=== PATIENT | female | born 1975 | race Caucasian/White ===

== ENCOUNTER 2017-04-22 19:48 | Emergency (ER) | payer BC ==
[2017-04-22 20:21] LABS: #Lymphocytes 1.4 thou/uL (1.20-3.40); #Monocytes 0.7 thou/uL (0.11-0.59); #Neutrophils 15.5 thou/uL (1.40-6.50); %Basophils 0.2 % (0.0-1.0); %Eosinophils 0.2 % (0.0-10.0); %Lymphocytes 8.1 % (21.0-51.0); %Monocytes 4.1 % (0.0-10.0); Hematocrit 37.8 % (36.0-47.0); Mean Platelet Volume 7.4 fL (7.4-10.4); Red Blood Cell (RBC) Count 3.77 mill/uL (4.20-5.40); White Blood Cell (WBC) Count 17.7 thou/uL (4.8-10.8)
[2017-04-22 20:27] LABS: Bilirubin Negative (Negative); Blood, Urine Negative (Negative); Glucose, Urine (Dipstick) Negative (Negative); Ketone, Urine Negative (Negative); Nitrite Negative (Negative); Protein, Urine (Dipstick) Negative (Neg-Trace); Urobilinogen 0.2 mg/dL (0.2-1.0)
[2017-04-22 20:40] LABS: Amphetamine Not Detected (NotDetected); Methamphetamine Not Detected (NotDetected)
[2017-04-22 20:41] LABS: Methadone Not Detected (NotDetected)
[2017-04-22 20:46] LABS: Acetaminophen Less than 6.0 mcg/mL (10.0-30.0); CK (CPK) 63 U/L (29-168); Salicylate Less than 8.0 mg/dL (15.0-30.0)
[2017-04-22 20:47] LABS: ALT (SGPT) 10 U/L (8-55); AST (SGOT) 10 U/L (5-34); Alkaline Phosphatase 67 U/L (40-150); Anion Gap 20 mmol/L (10-20); BUN (Urea Nitrogen) 28 mg/dL (7.0-18.7); Bilirubin, Total 0.2 mg/dL (0.2-1.2); Calc. Creatinine Clearance 0 mL/min (70-130); Calcium 9.6 mg/dL (7.8-10.44); Carbon Dioxide 17 mmol/L (22-29); Chloride 111 mmol/L (98-107); Estimated GFR-MDRD 76
[2017-04-22] MEDS ORDERED: Lorazepam 2 MG/ML VIAL ONE (21:42)
== END 2017-04-22 22:53 | disposition home or self-care (01) ==
LOC: ERS 19:48
DX: F10.129 Alcohol abuse with intoxication, unspecified (principal); F19.10 Other psychoactive substance abuse, uncomplicated; F41.9 Anxiety disorder, unspecified; Y90.7 Blood alcohol level of 200-239 mg/100 ml
CPT/HCPCS: 36415; 51701; 80053; 80306; 80307; 81003; 82550; 84439; 84443; 85025; 93005; 94760; 96361; 96374; A4353; J2060

== ENCOUNTER 2017-08-29 12:52 | Outpatient (CLI) | payer OTHER ==
[2017-08-29] MEDS ORDERED: Iopamidol 300 61% 30 ML VIAL ONE (13:30)
[2017-08-29] MEDS ORDERED: Gadobenate Dimeglumine 529 MG/1 ML (20ML VIAL) ONE (13:30)
[2017-08-29] MEDS ORDERED: Lidocaine 1% PF 10 ML AMP ONE (13:30)
[2017-08-29] MEDS ORDERED: EPINEPHrine 1 MG/ML AMP ONE (13:30)
[2017-08-29 13:52] LABS: BHCG - Serum Negative (NEGATIVE); Pregs Control Background? CLEAR/WHITE (CLR/WHITE); Pregs Control Bar Appear? YES (CONTROL BAR)
--- NOTE | 2017-08-29 16:15 | RAD ---
RIGHT SHOULDER ARTHROGRAM: INDICATION: Right shoulder pain. TECHNIQUE: Informed consent was obtained. Preprocedure item processing clerk images were performed of the right shoulder. I pe rsonally injected the right shoulder utilizing sterile technique and fluoroscopic guidance with a dil vipin Gadolinium solution. The patient tolerated the injection without difficulty. Total fluorosocpic time was 0.3 minutes. Total exposure was 1.481 uGy*^cm2. FINDINGS: No acute fracture or subluxation is evident. Glenohumeral alignment and AC joint alignment is normal . The visualized right lung is clear. IMPRESSION: Successful right shoulder arthrogram. POS: [facility]
--- NOTE | 2017-08-29 17:35 | MRI ---
MR ARTHROGRAM OF THE RIGHT SHOULDER 08/29/17 INDICATION: Right shoulder pain. COMPARISON: Right shoulder arthrogram radiograph dated 08/29/17. TECHNIQUE: Multiplanar and multisequence MR images were obtained in a right shoulder after intra-articular admin istration with dilute gadolinium solution. Please see the separately dictated right shoulder arthrogr am for details concerning injection technique. FINDINGS: There is some mild undersurface irregularity of the supraspinatus with some mild tendinosis. No defin ite full thickness tear is evident. There is some suspected degenerative and subchondral cyst-like ab normalities involving the posterior greater tuberosity. Visualized aspects of the inferior glenohumer al labral ligamentous complex appear intact. The biceps anchor complex and superior glenoid labrum ar e intact. Glenohumeral articular surface appears within normal limits. AC joint is normal appearing. No definite muscular atrophy is evident. IMPRESSION: 1. Mild undersurface irregularity of the supraspinatus. 2. Mild tendinosis of the supraspinatus and infraspinatus. 3. Suspected degenerative subchondral cyst-like abnormalities involving the posterior greater tu berosity which may be related to some traction injury at this location. 4. Visualized biceps anchor complex and inferior glenohumeral labral ligamentous complex appear within normal limits. POS: [facility]
== END 2017-08-29 12:53 | disposition home or self-care (01) ==
LOC: RAD 12:52
PROVIDERS: ATTEND Orthopaedic Surgery
DX: M25.511 Pain in right shoulder (principal); M75.91 Shoulder lesion, unspecified, right shoulder; Z98.890 Other specified postprocedural states
CPT/HCPCS: 23350; 36415; 84703; A9579; J0171; J7050

== ENCOUNTER 2018-09-12 11:58 | Day surgery (SDC) | payer OTHER ==
[2018-09-04 14:26] VITALS: BMI 28.3
--- NOTE | 2018-09-05 00:53 | HP ---
HISTORY OF PRESENT ILLNESS: This is a 43-year-old female, comes to the ED because of abdominal pain, dyspepsia. The patient gives history of chronic acid reflux. She has complains of abdominal pain off and on. The symptoms are worse very recently. The pain is over the upper abdomen. It is sharp in nature. It is also burning. The pain is worse after meals. There is no nausea or vomiting. The patient went to the ER 3 weeks ago and had abdominal CAT scan. The abdominal CAT scan shows sigmoid diverticulosis, but no diverticulitis. The patient has been having recurrent abdominal pain and acid reflux symptoms recently. The patient came to the ED because of the above reason. ALLERGIES: NONE. SOCIAL HISTORY: The patient is a smoker, smokes 6 to 7 cigarettes per day. No alcohol intake. MEDICAL ILLNESS: 1. Chronic neck pain. 2. Anxiety. 3. Hemorrhoids. 4. Asthma. 5. Pneumonia in 2016. PHYSICAL EXAMINATION: GENERAL: Appears comfortable. VITAL SIGNS: Pulse is 70, blood pressure 130/70. HEENT: Conjunctivae clear. NECK: Supple. ABDOMEN: Soft. Abdomen is tender in the epigastric area. There is no rebound or guarding. ADMITTING DIAGNOSES: Abdominal pain and dyspepsia. PLAN: EGD. Job ID: [id number]
--- NOTE | 2018-09-12 07:34 | HP ---
HISTORY OF PRESENT ILLNESS: This is a 43-year-old female comes in for EGD for abdominal pain, dyspepsia. The patient has had chronic symptoms. chronic acid reflux. She has abdominal pain off and on. The pain is over the epigastric area and is sharp in nature. The pain is worse after meals. She has mild nausea with the pain. She had no vomiting. The patient came to the ER because of abdominal pain. Recently had a CAT scan. The CAT scan for colonic diverticular disease. The patient is undergoing EGD because of the above reason. ALLERGIES: NONE. SOCIAL HISTORY: The patient is a smoker. Does not drink alcohol. MEDICAL ILLNESSES: 1. Chronic neck pain. 2. Anxiety. 3. Hemorrhoids. 4. Asthma. 5. Pneumonia in 2016. PHYSICAL EXAMINATION: GENERAL: Appears comfortable. VITAL SIGNS: Pulse is 70, blood pressure 130/70. HEENT: Conjunctivae clear. CARDIOVASCULAR SYSTEM: First and second heart sounds heard. LUNGS: Clear to auscultation. ABDOMEN: Soft. No organomegaly. Abdomen is tender over the epigastric area. There is no rebound or guarding. Bowel sounds are normal. ADMITTING DIAGNOSES: Abdominal pain, nausea, and chronic acid reflux. PLAN: EGD. Job ID: [id number]
[2018-09-12] MEDS ORDERED: Midazolam HCl 2 mg/2 ml Vial ONE (12:59)
[2018-09-12] MEDS ORDERED: Lorazepam 1 MG TAB PO SCH (14:15)
[2018-09-12] MEDS ORDERED: Lidocaine 1% PF 5 ML VIAL ONE (14:43)
[2018-09-12] MEDS ORDERED: PROPOFOL 200 MG/20 ML VIAL ONE (14:43)
--- NOTE | 2018-09-12 17:57 | OP ---
DATE OF PROCEDURE: 09/12/2018 OPERATIVE PROCEDURES: Esophagogastroduodenoscopy with biopsy. PREOPERATIVE DIAGNOSES: A 43-year-old female with abdominal pain , which is persistent in nature. She has mild nausea with the pain. The patient underwent esophagogastroduodenoscopy. POSTOPERATIVE DIAGNOSES: 1. Normal esophagus and stomach. 2. Very large deep ulceration in the duodenal bulb extending into the pyloric channel. DESCRIPTION OF PROCEDURE: The patient was placed on her left lateral position and was given sedation by Anesthesia Department. A Pentax videogastroscope under direct vision passed down the oropharynx past the GE junction into the stomach and subsequently into the descending duodenum. The esophageal mucosa appeared normal. The GE junction, no pathology. The fundus and cardia, gastric body, gastric antrum, no pathology seen. The patient had a very large ulceration, which was quite deep and measured approximately 3 cm. The ulcer starts at the pyloric channel going into the duodenal bulb. The descending duodenum, no pathology seen. The scope was withdrawn back and biopsy obtained of the gastric antrum and gastric body. The stomach decompressed and scope was removed. DISCHARGE PLAN: A 43-year-old female with abdominal pain and nausea, came for an EGD. The EGD showed a large ulceration in the bulb. The patient on pantoprazole 40 twice a day. She is advised to continue pantoprazole 40 twice a day. The patient will come back to me in 2 weeks. If the gastric biopsy showed Helicobacter, we will treat accordingly. Job ID: [id number]
== END 2018-09-12 15:05 | disposition home or self-care (01) ==
LOC: SDC 11:58
PROVIDERS: ATTEND Internal Medicine Gastroenterology
PROC: 0DB58ZX Excision of Esophagus, Via Natural or Artificial Opening Endoscopic, Diagnostic (ICD-10-PCS; principal; 2018-09-12)
DX: R10.13 Epigastric pain (principal); K21.9 Gastro-esophageal reflux disease without esophagitis; K57.30 Diverticulosis of large intestine without perforation or abscess without bleeding; K64.9 Unspecified hemorrhoids; F17.200 Nicotine dependence, unspecified, uncomplicated; M54.2 Cervicalgia; J45.909 Unspecified asthma, uncomplicated; Z79.899 Other long term (current) drug therapy; Z79.82 Long term (current) use of aspirin; Z88.2 Allergy status to sulfonamides; Z88.8 Allergy status to other drugs, medicaments and biological substances
CPT/HCPCS: 88305; 88312; J2001; J2250; J2704

== ENCOUNTER 2019-06-09 18:08 | Emergency (ER) | payer BC, OTHER ==
[2019-06-09] MEDS ORDERED: Ondansetron ODT 4 MG TAB ONE (22:09)
== END 2019-06-09 21:00 | disposition home or self-care (01) ==
LOC: ERS 18:08
DX: O99.89 Other specified diseases and conditions complicating pregnancy, childbirth and the puerperium (principal); O99.341 Other mental disorders complicating pregnancy, first trimester; F41.9 Anxiety disorder, unspecified; O09.521 Supervision of elderly multigravida, first trimester; Z87.891 Personal history of nicotine dependence; Z3A.09 9 weeks gestation of pregnancy
CPT/HCPCS: Q0162

== ENCOUNTER 2019-06-23 09:08 | Emergency (ER) | payer BC, OTHER ==
[2019-06-23] MEDS ORDERED: Ondansetron PF 4 MG/2 ML Vial ONE (09:29)
[2019-06-23 10:04] LABS: Bacteria/HPF None Seen HPF (None Seen); Bilirubin Negative (Negative); Blood, Urine Negative (Negative); Clarity Turbid (Clear); Glucose, Urine (Dipstick) Normal (Negative); Leukocyte Negative Leu/uL (Negative); Nitrite Negative (Negative); Protein, Urine (Dipstick) 50 mg/dL (Neg-Trace); RBC/HPF 0-3 HPF (0-3); Squamous Epithelial 21-50 HPF (0-3); Urobilinogen Normal mg/dL (Less than 2)
[2019-06-23 10:19] LABS: ALT (SGPT) 14 U/L (8-55); AST (SGOT) 13 U/L (5-34); Albumin 4.5 g/dL (3.5-5.0); Alkaline Phosphatase 60 U/L (40-110); Anion Gap 14 mmol/L (10-20); BUN (Urea Nitrogen) 17 mg/dL (7.0-18.7); Bilirubin, Total 0.9 mg/dL (0.2-1.2); Calc. Creatinine Clearance 0 mL/min (70-130); Calcium 9.9 mg/dL (7.8-10.44); Carbon Dioxide 21 mmol/L (22-29); Chloride 106 mmol/L (98-107); Estimated GFR-MDRD 84; Globulin 3.4 g/dL (2.4-3.5); Glucose 129 mg/dL (70-105); Potassium 4.1 mmol/L (3.5-5.1); Protein, Total 7.9 g/dL (6.0-8.3); Sodium 137 mmol/L (136-145)
[2019-06-23 10:28] LABS: Hemoglobin 15.7 g/dL (12.0-16.0); Mean Corpuscular HGB CONC 33.2 g/dL (32.0-36.0); Mean Corpuscular Hemoglobin 30.5 pg (27.0-31.0); Mean Corpuscular Volume 91.7 fL (78.0-98.0); Platelet Count 355 thou/uL (130-400); RBC Distribution Width 12.8 % (11.5-14.5); Red Blood Cell (RBC) Count 5.14 mill/uL (4.20-5.40); White Blood Cell (WBC) Count 15.1 thou/uL (4.8-10.8)
[2019-06-23 10:46] LABS: Band 9 % (5-11); Lymphocytes 4 % (21-51); MDiff Complete? YES; Monocytes 1 % (0-10); Neutrophil 86 % (42-75)
== END 2019-06-23 12:16 | disposition home or self-care (01) ==
LOC: ERS 09:08
DX: O21.9 Vomiting of pregnancy, unspecified (principal); O99.89 Other specified diseases and conditions complicating pregnancy, childbirth and the puerperium; R19.7 Diarrhea, unspecified; Z3A.13 13 weeks gestation of pregnancy; O99.341 Other mental disorders complicating pregnancy, first trimester; F41.9 Anxiety disorder, unspecified; O99.331 Smoking (tobacco) complicating pregnancy, first trimester; F17.210 Nicotine dependence, cigarettes, uncomplicated; Z79.1 Long term (current) use of non-steroidal anti-inflammatories (NSAID); Z79.899 Other long term (current) drug therapy
CPT/HCPCS: 80053; 81003; 81015; 85025; 87086; 96361; 96374; J2405

== ENCOUNTER 2020-01-03 20:57 | Inpatient (IN) | payer BC, OTHER ==
[2020-01-03 21:57] VITALS: BMI 31.6
[2020-01-03] MEDS ORDERED: hydrALAZINE 20 MG/ML VIAL SLOW IVP PRN ×2 (22:07→22:55)
--- NOTE | 2020-01-03 22:40 | PDOC.LDHP ---
Labor and Delivery H&P Chief complaint: other (high BP) HPI: Patient is a 44 yo at 37.1 weeks today who presents to L&D triage with complaint of not feeling well and elevated blood pressures on home monitor. Patient says around lunch time she started to have a headache and have spots in her vision. Then later on in the afternoon developed sharp RUQ pain but thinks baby is also kicking alot in that area. She also reports she has had 8 BMs today , described as mostly firm stool and not watery. Patient decided to started checking her blood pressures around 3PM and was 138/88. Then around 7 PM her pressure was 165/100 and so she decided to come into L&D to get checked out. Patient reports she was seen in office this week by Dr. Powell and her pressure was elevated and was told she had some protein in her urine. Was supposed to have follow up appointment with him in 3 days. Denies any vaginal bleeding/spotting, loss of fluid. Thinks she may be have some back contractions occasionally. Current gestational age (weeks): 37 (37.1 weeks ) Due date: 01/23/20 Dating criteria: last menstrual period Grav: 1 Para: 0 OB History Details: BP have been okay for duration of until this past week GBS positive A negative, received IM Rhogam this past month per patient failed 1 hr GTT, passed 4h GTT Current complications: none Abnormal US findings: No Past Medical History: Asthma Anxiety Ulcer Right shoulder injury Previous smoker, quit when found out she was Seizure in 2016 Current medications: pre-phil vitamins Previous surgical history: other (EGD for large stomach ulcer in 2019) Allergies/Adverse Reactions: Allergies Allergy/AdvReac Type Severity Reaction Status Date / Time cefadroxil hydrate Allergy Verified 01/03/20 21:51 [From Duricef] Sulfa (Sulfonamide Allergy Verified 01/03/20 21:51 Antibiotics) Social history: none (denies current EtOH or tobacco use, is former smoker prior to ) - Physical Exam Abnormal vital signs: BP 153/88, 166/94 General: resting, other (anxious affect) Heart: RRR Lungs: CTAB Abdomen: other (gravid, TTP in RUQ & LLQ) Extremeties: no edema FHT: variable decelerations (1 variable decel, multiple accels present, tachycardic with baseline FHR 170), variability present - OB Labs Blood type: A RH: negative Antibody Screen: unknown HIV: unknown RPR: unknown HEPSAg: unknown 1 hour GCT: positive 3 hour GTT: passed GBS: positive Urine drug screen: not done - Assessment Pre-Eclampsia, symptomatic - Plan Plan: admit to L&D, magnesium for neuroprotection -: Patient is a 44 yo at 37.1 weeks today who presents with elevated BPs: Pre-Eclampsia -patient with severe range BP of 166/94, multiple other BP in 150s systolic -previously normotensive per clinic record review -currently symptomatic with headaches, vision changes, RUQ pain -will order PIH labs including CBC, CMP, uric acid, urine Pr/Cr -start on Magnesium -FHR baseline 170-175, encourage oral hydration and plan to start IVF -continue to monitor BP q15min -continuous external monitoring -Labetalol prn & Hydralazine prn for systolic BP >160, diastolic BP >110 Third Trimester -at 37.1 weeks today -followed by Dr. Powell, will notify of admission Hx of Seizure -continue to monitor Hx of Asthma -avoid use of Methergine Rh Negative Status -already given IM Rhogam at clinic GBS Positive -will need penicillin if decide to induce Dispo: Stable, admit to L&D and start on Magnesium. Continue to monitor. Addendum - Attending - Attending Attestation Date/Time: 01/04/20 0001 I personally evaluated the patient and discussed the management with Dr. Yoon. 44 yo WF G1 at 37 weeks admitted with elevated BPs c/w PIH. Dr. Powell notified of admit. I agree with the History, Examination, Assessment and Plan documented above.
[2020-01-03 22:41] LABS: #Basophils 0.1 thou/uL (0.0-0.2); #Eosinphils 0.1 thou/uL (0.0-0.7); #Lymphocytes 1.9 thou/uL (1.20-3.40); #Monocytes 0.7 thou/uL (0.11-0.59); #Neutrophils 11.4 thou/uL (1.40-6.50); %Basophils 0.4 % (0.0-1.0); %Eosinophils 0.8 % (0.0-10.0); %Lymphocytes 13.3 % (21.0-51.0); %Neutrophils 80.5 % (42.0-75.0); Hemoglobin 12.1 g/dL (12.0-16.0); Mean Corpuscular Hemoglobin 30.6 pg (27.0-31.0); Mean Corpuscular Volume 92.8 fL (78.0-98.0); Mean Platelet Volume 7.8 fL (7.4-10.4); Platelet Count 417 thou/uL (130-400); RBC Distribution Width 11.7 % (11.5-14.5); Red Blood Cell (RBC) Count 3.94 mill/uL (4.20-5.40); White Blood Cell (WBC) Count 14.1 thou/uL (4.8-10.8)
[2020-01-03 22:52] LABS: Creatinine, Urine 145.02 mg/dL (47-110)
[2020-01-03] MEDS ORDERED: NS / Oxytocin 40 units/1000ml 1,000 ML IV PRN (22:55)
[2020-01-03] MEDS ORDERED: Lidocaine 1% (PF) 30 ML VIAL SC PRN (22:55)
[2020-01-03] MEDS ORDERED: Calcium Gluc 4.6 MEQ/10 ML (100 MG/ML) SLOW IVP PRN (22:55)
[2020-01-03] MEDS ORDERED: Promethazine HCl 25 MG/ML VIAL IM PRN (22:55)
[2020-01-03] MEDS ORDERED: Ibuprofen 800 MG TAB PO PRN (22:55)
[2020-01-03] MEDS ORDERED: Misoprostol 200 MCG TAB PR PRN (22:55)
[2020-01-03] MEDS ORDERED: Ondansetron PF 4 MG/2 ML Vial IVP PRN (22:55)
[2020-01-03] MEDS ORDERED: Acetaminophen 500 MG TAB PO PRN (22:55)
[2020-01-03] MEDS ORDERED: Magnesium Sulfate 20 gm/500 ml 20 GM/500 ML BAG IVPB SCH (23:00)
[2020-01-03 23:02] LABS: ALT (SGPT) 9 U/L (8-55); AST (SGOT) 14 U/L (5-34); Albumin 3.5 g/dL (3.5-5.0); Alkaline Phosphatase 122 U/L (40-110); Anion Gap 15 mmol/L (10-20); BUN (Urea Nitrogen) 10 mg/dL (7.0-18.7); Bilirubin, Total 0.4 mg/dL (0.2-1.2); Calc. Creatinine Clearance 142 mL/min (70-130); Calcium 9.5 mg/dL (7.8-10.44); Carbon Dioxide 22 mmol/L (22-29); Chloride 104 mmol/L (98-107); Estimated GFR-MDRD Greater than 90; Globulin 3.9 g/dL (2.4-3.5); Glucose 77 mg/dL (70-105); Potassium 3.9 mmol/L (3.5-5.1); Protein, Total 7.4 g/dL (6.0-8.3); Sodium 137 mmol/L (136-145); Uric Acid 5.9 mg/dL (2.6-6.0)
[2020-01-03] MEDS ORDERED: Labetalol HCl 100 MG/20 ML VIAL SLOW IVP PRN (23:04)
[2020-01-03] MEDS ORDERED: Magnesium Sulfate 20 GM/WATER 500 ML BAG IVPB SCH (23:15)
[2020-01-03] MEDS ORDERED: Penicillin G Potassium 5 MILL.UNITS in Sodium Chloride 0.9% 100 ML IVPB SCH (23:15)
[2020-01-04] MEDS ORDERED: Zolpidem Tartrate 5 MG TAB PO SCH ×2 (00:15→23:30)
[2020-01-04] MEDS ORDERED: Misoprostol 100 MCG TAB VAG SCH (00:15)
[2020-01-04 00:52] LABS: HBSAg Index 0.16 S/CO (0-0.99); Hep B Surf Ag Non-Reactive S/CO (NonReactive)
[2020-01-04 02:36] LABS: Syphilis Antibody Nonreactive (Nonreactive); Syphilis Antibody Index 0.04 S/CO (<1.00 Non-Reactive)
[2020-01-04] MEDS ORDERED: Famotidine/PF 20 mg/2ml Vial SLOW IVP PRN (03:40)
[2020-01-04] MEDS ORDERED: MORPHINE 5 MG/10 ML PF VIAL ONE (08:11)
[2020-01-04] MEDS ORDERED: Midazolam HCl 2 mg/2 ml Vial ONE (08:11)
[2020-01-04] MEDS ORDERED: Fentanyl 100 MCG/2 ML VIAL ONE (08:11)
[2020-01-04] MEDS ORDERED: diphenhydrAMINE 50 MG/ML VIAL ONE (08:12)
[2020-01-04] MEDS ORDERED: Oxytocin 10 UNITS/ML VIAL ONE (08:12)
[2020-01-04] MEDS ORDERED: Ondansetron PF 4 MG/2 ML Vial ONE (08:12)
[2020-01-04] MEDS ORDERED: PHENYLEPHRINE-NS 100 MCG/ML 10 ML SYRINGE ONE (08:12)
[2020-01-04] MEDS ORDERED: Ketorolac Tromethamine 30 MG/ML VIAL ONE (08:12)
[2020-01-04] MEDS ORDERED: Dexamethasone 4 mg/ml Vial ONE (08:12)
[2020-01-04] MEDS ORDERED: Clindamycin/D5W 900 MG in Premix Bag 1 BAG IVPB SCH (08:15)
[2020-01-04] MEDS ORDERED: Bicitra 30 ML UDCUP PO SCH (08:30)
[2020-01-04] MEDS ORDERED: Vancomycin 1 GM in Premix Bag 1 BAG IVPB SCH (08:30)
[2020-01-04] MEDS ORDERED: EPHEDRINE 25 MG/5 ML SYRINGE ONE (09:00)
[2020-01-04] MEDS ORDERED: Ketamine 50 MG/ML (10ML VIAL) ONE (09:00)
[2020-01-04] MEDS ORDERED: Meperidine HCl/PF 25 MG/ML VIAL ONE ×3 (09:21→11:33)
[2020-01-04] MEDS ORDERED: Naloxone HCl 0.4 mg/ml Vial IV PRN (09:36)
[2020-01-04] MEDS ORDERED: Promethazine HCl 25 MG SUPP PR PRN (09:36)
[2020-01-04] MEDS ORDERED: diphenhydrAMINE 50 MG/ML VIAL IVP PRN (09:36)
[2020-01-04] MEDS ORDERED: Promethazine HCl 25 MG/ML VIAL IM PRN (09:36)
[2020-01-04] MEDS ORDERED: Ondansetron PF 4 MG/2 ML Vial IVP PRN (09:36)
[2020-01-04] MEDS ORDERED: L&D-Morphine 4 MG/ML VIAL SLOW IVP PRN (11:00)
[2020-01-04] MEDS ORDERED: Communication Order-Pharmacy FS SCH (11:00)
[2020-01-04] MEDS ORDERED: HYDROmorphone 2 MG/ML VIAL SLOW IVP PRN (11:00)
[2020-01-04] MEDS ORDERED: Naloxone HCl 0.4 mg/ml Vial IVP PRN ×2 (11:00)
[2020-01-04] MEDS ORDERED: Ondansetron HCl/PF 4 MG/2 ML Vial IVP PRN (11:00)
[2020-01-04] MEDS: Misoprostol 100 MCG TAB VAG SCH (11:01)
[2020-01-04] MEDS: Meperidine HCl/PF 25 MG/ML VIAL SLOW IVP PRN ×2 (11:07→11:36)
[2020-01-04] MEDS: Penicillin G 2.5 MILL.units 2.5 MILL.UNITS in Premix Bag 1 BAG IVPB SCH (11:11)
[2020-01-04] MEDS ORDERED: Morphine 4 MG/ML VIAL ONE (11:33)
[2020-01-04] MEDS ORDERED: Clindamycin (PEDI) 900 MG in Syringe 0 ML IVPB SCH (12:00)
[2020-01-04] MEDS ORDERED: HYDROcodone/Acetaminophen 5/325 mg Tablet PO PRN (12:13)
[2020-01-04] MEDS ORDERED: traMADol HCl 50 MG TAB PO PRN ×2 (12:14)
[2020-01-04] MEDS: HYDROcodone/Acetaminophen 5/325 mg Tablet PO PRN ×3 (12:37→20:41)
[2020-01-04 15:34] LABS: SARS-CoV-2 MS2 Positive; SARS-CoV-2 N Gene Negative; SARS-CoV-2 S Gene Negative; SARS-CoV-2 by NAA Not Detected (NotDetected); SARS-CoV-2 orf1ab Negative
[2020-01-04] MEDS: Ketorolac Tromethamine 30 MG/ML VIAL IVP SCH (20:40)
[2020-01-04] MEDS: Lactated Ringer's 1,000 ML IV SCH (21:26)
[2020-01-05] MEDS: HYDROcodone/Acetaminophen 5/325 mg Tablet PO PRN ×6 (00:53→20:44)
[2020-01-05] MEDS: Ketorolac Tromethamine 30 MG/ML VIAL IVP SCH ×2 (05:02→12:55)
[2020-01-05] MEDS ORDERED: Simethicone Chewable 80 MG TAB PO SCH (05:15)
[2020-01-05] MEDS ORDERED: NIFEdipine XL 60 MG TAB PO SCH (11:15)
[2020-01-05] MEDS ORDERED: hydrALAZINE 20 MG/ML VIAL SLOW IVP PRN (12:33)
[2020-01-05] MEDS ORDERED: Acetaminophen 325 MG TAB PO PRN (12:33)
[2020-01-05] MEDS ORDERED: diphenhydrAMINE 25 MG CAP PO PRN (12:33)
[2020-01-05] MEDS ORDERED: Lanolin Ointment 7 GM TUBE TOP PRN (12:33)
[2020-01-05] MEDS ORDERED: Ondansetron PF 4 MG/2 ML Vial IVP PRN (12:33)
[2020-01-05] MEDS: Lactated Ringer's 1,000 ML IV SCH ×2 (13:03→13:04)
[2020-01-05] MEDS: Misoprostol 100 MCG TAB VAG SCH ×2 (13:04→13:05)
[2020-01-05] MEDS: Penicillin G 2.5 MILL.units 2.5 MILL.UNITS in Premix Bag 1 BAG IVPB SCH ×2 (13:05→13:06)
[2020-01-05] MEDS: Ibuprofen 800 MG TAB PO SCH ×2 (13:14→20:47)
[2020-01-05] MEDS: Simethicone Chewable 80 MG TAB PO PRN (14:29)
[2020-01-06] MEDS: HYDROcodone/Acetaminophen 5/325 mg Tablet PO PRN ×6 (00:57→20:29)
[2020-01-06] MEDS: Docusate Calcium (SURFAK) 240 MG CAP PO SCH ×3 (01:01→20:29)
[2020-01-06] MEDS: NIFEdipine XL 60 MG TAB PO SCH (08:34)
[2020-01-06] MEDS: Prenatal Vitamin 1 TAB PO SCH (08:34)
[2020-01-06] MEDS: Simethicone Chewable 80 MG TAB PO PRN ×2 (08:35→16:50)
[2020-01-06] MEDS: Ibuprofen 800 MG TAB PO SCH ×3 (08:35→20:30)
[2020-01-06] MEDS ORDERED: Adacel (T-DAP) 0.5 ML SYRINGE IM ONE (09:00)
--- NOTE | 2020-01-06 16:55 | PDOC.PP ---
Post Progress Note Post Day #: 1 PO intake tolerated: yes Flatus: yes Ambulation: yes Vital Signs (12 hours) Temp Pulse Resp BP BP Pulse Ox 01/06/20 12:41 98.3 F 86 20 138/68 01/06/20 08:34 94 135/70 01/06/20 07:57 98.7 F 94 18 135/70 98 Weight Weight 190 lb - Physical Examination General: NAD Cardiovascular: no m/r/g, RRR Respiratory: clear to auscultation bilaterally, non-labored breathing Abdominal: + bowel sounds, lochia, no distention Extremities: negative homans (B) Skin: CS incision dry & intact, no rash Neurological: no gross focal deficits Psychiatric: A&Ox3, normal affect Result Diagrams: 01/03/20 22:34 01/03/20 22:34 Additional Labs: Post Labs Blood Type A NEGATIVE 01/04/20 00:17 Hep Bs Antigen Non-Reactive S/CO (NonReactive) 01/03/20 23:42
--- NOTE | 2020-01-07 00:36 | DN ---
DATE OF PROCEDURE: 01/04/2020 TIME: 09:06 am [place] daylight savings time. PREOPERATIVE DIAGNOSIS: Intrauterine at 37 weeks and 2 days with the diagnosis of severe preeclampsia and non-reassuring heart tones including tachycardia. POSTOPERATIVE DIAGNOSIS: Intrauterine at 37 weeks and 2 days with the diagnosis of severe preeclampsia and non-reassuring heart tones including tachycardia. PROCEDURE PERFORMED: A primary low-transverse section using a Pfannenstiel skin incision. FINDINGS: Viable female weighing 2610 g or 5 pounds 12 ounces, Apgars 8 and 9. QUANTITATIVE BLOOD LOSS: 236 mL. COMPLICATIONS: None. DETAILS OF THE PROCEDURE: The patient was consented and taken back to the operating room where spinal anesthesia was found to be adequate. She was then prepped and draped in the normal sterile fashion. A timeout was performed by the entire operative team. The incision was then marked with a marking pen tested using sharp pickups. An incision was then made with a scalpel. The incision was carried through the adipose tissue down to the underlying rectus fascia using both sharp dissection as well as cautery. Once the fascia was identified, it was incised in the midline and then the fascial incision was carried through in both lateral directions using sharp as well as cautery dissection techniques. Next, the superior aspect of the rectus fascia was grasped with 2 Bryn clamps, which was tented up and the rectus muscles were dissected off using blunt dissection as well as cautery dissection. Similarly, the inferior aspect of the fascial incision was grasped with 2 Bryn clamps, tented up and the rectus muscles were dissected off bluntly as well as sharply. Next, the rectus muscles were in the midline and the peritoneum identified. The peritoneum was then carefully grasped with 2 hemostats and entered sharply. The peritoneal incision was extended superiorly and inferiorly and bladder blade was placed in the lower abdomen. At this point, the uterus was identified and the bladder flap was then developed using pickups with teeth as well as Metzenbaum scissors in both lateral directions. The bladder flap was then dissected downwards using the pile operator's finger as well as Metzenbaum scissors. The bladder blade was replaced. The lower uterine segment was then identified and entered sharply using a clean scalpel. The uterine incision was then dissected downwards until thin layer of muscle remained and this was entered bluntly using a hemostat to avoid any injury to the baby. The uterine incision was then stretched using two fingers in both lateral directions. An amniotomy was performed artificially using a hemostat and the baby was delivered using fundal pressure in a gentle fashion. Once out, the baby's mouth and nose were bulb suctioned, cord clamped and cut, and the baby was handed to waiting attendants. Next, the uterus was exteriorized, cleared of all clots and debris and the uterine incision was repaired with #1 Monocryl in a running locking fashion. A 2nd suture of the same type was used to obtain complete hemostasis at the uterine incision. The bladder flap was reapproximated using 3-0 Monocryl. Next, patient's left and right adnexa were inspected and appeared to be within normal limits. The posterior cul-de-sac was blotted dry and hemostasis assured. One more look at the uterine incision demonstrated hemostasis. Next, the uterus was replaced back within the abdomen. The peritoneum was reapproximated using 2-0 Monocryl without difficulty. The rectus muscles were then allowed to come back together and 0 chromic was used to aid in reapproximation of the muscle as necessary. The rectus fascia was then reapproximated in a running fashion using 0 Vicryl suture. The adipose tissue was then examined and appeared to be well approximated without any obvious separations. Finally, the skin was reapproximated with 3-0 Monocryl on a Lee needle without difficulty and Dermabond adhesive was applied to the skin. Once the glue was dry, the drapes were removed and the patient was transferred to an ambulatory bed where she was taken to recovery awake and in stable condition. Sponge, lap, and needle counts were correct x3. Job ID: [id number]
[2020-01-07] MEDS: HYDROcodone/Acetaminophen 5/325 mg Tablet PO PRN ×6 (00:44→21:20)
[2020-01-07] MEDS: Ibuprofen 800 MG TAB PO SCH ×3 (03:01→21:21)
[2020-01-07] MEDS: NIFEdipine XL 60 MG TAB PO SCH (08:36)
[2020-01-07] MEDS: Docusate Calcium (SURFAK) 240 MG CAP PO SCH ×2 (08:36→21:21)
[2020-01-07] MEDS: Prenatal Vitamin 1 TAB PO SCH (08:36)
[2020-01-07] MEDS: Simethicone Chewable 80 MG TAB PO PRN ×2 (08:41→21:21)
--- NOTE | 2020-01-07 21:05 | PDOC.PP ---
Post Progress Note Post Day #: 3 PO intake tolerated: yes Flatus: yes Ambulation: yes Vital Signs (12 hours) Temp Pulse Resp BP Pulse Ox 01/07/20 19:27 98.1 F 109 H 16 132/75 98 01/07/20 17:06 131/74 01/07/20 15:35 98.6 F 101 H 16 149/76 H 01/07/20 11:41 98.8 F 110 H 20 140/80 98 Weight Weight 190 lb - Physical Examination General: NAD Cardiovascular: no m/r/g, RRR Respiratory: clear to auscultation bilaterally, non-labored breathing Abdominal: + bowel sounds, lochia, no distention Extremities: negative homans (B) Skin: CS incision dry & intact, no rash Neurological: no gross focal deficits Psychiatric: A&Ox3 (DC home in am planned.), normal affect Result Diagrams: 01/03/20 22:34 01/03/20 22:34 Additional Labs: Post Labs Blood Type A NEGATIVE 01/04/20 00:17 Hep Bs Antigen Non-Reactive S/CO (NonReactive) 01/03/20 23:42
--- NOTE | 2020-01-07 21:06 | PDOC.PP ---
Post Progress Note Post Day #: 3 PO intake tolerated: yes Flatus: yes Ambulation: yes Vital Signs (12 hours) Temp Pulse Resp BP Pulse Ox 01/07/20 19:27 98.1 F 109 H 16 132/75 98 01/07/20 17:06 131/74 01/07/20 15:35 98.6 F 101 H 16 149/76 H 01/07/20 11:41 98.8 F 110 H 20 140/80 98 Weight Weight 190 lb - Physical Examination General: NAD Cardiovascular: no m/r/g, RRR Respiratory: clear to auscultation bilaterally, non-labored breathing Abdominal: + bowel sounds, lochia, no distention Extremities: negative homans (B) Skin: CS incision dry & intact Neurological: no gross focal deficits Psychiatric: A&Ox3, normal affect Result Diagrams: 01/03/20 22:34 01/03/20 22:34 Additional Labs: Post Labs Blood Type A NEGATIVE 01/04/20 00:17 Hep Bs Antigen Non-Reactive S/CO (NonReactive) 01/03/20 23:42
[2020-01-08] MEDS: HYDROcodone/Acetaminophen 5/325 mg Tablet PO PRN ×4 (01:31→14:23)
[2020-01-08] MEDS: Simethicone Chewable 80 MG TAB PO PRN (01:32)
[2020-01-08] MEDS: Ibuprofen 800 MG TAB PO SCH ×3 (05:51→14:42)
[2020-01-08 08:16] VITALS: BP 133/68; TEMP 98.2
[2020-01-08] MEDS: NIFEdipine XL 60 MG TAB PO SCH (09:07)
[2020-01-08] MEDS: Prenatal Vitamin 1 TAB PO SCH (09:08)
[2020-01-08] MEDS: Docusate Calcium (SURFAK) 240 MG CAP PO SCH (09:08)
== END 2020-01-08 15:00 | disposition home or self-care (01) | DRG 787 ==
LOC: L&D/OP 20:57 → L&D 22:55 → 3SW 01-05 12:01
PROVIDERS: ADMIT Obstetrics & Gynecology; ATTEND Obstetrics & Gynecology
PROC: 10D00Z1 Extraction of Products of Conception, Low, Open Approach (ICD-10-PCS; principal; 2020-01-04)
DX: O14.14 Severe pre-eclampsia complicating childbirth (principal); O99.354 Diseases of the nervous system complicating childbirth; O99.824 Streptococcus B carrier state complicating childbirth; Z3A.37 37 weeks gestation of pregnancy; Z37.0 Single live birth; Z11.59 Encounter for screening for other viral diseases; O99.52 Diseases of the respiratory system complicating childbirth; J45.909 Unspecified asthma, uncomplicated; O76 Abnormality in fetal heart rate and rhythm complicating labor and delivery; G40.909 Epilepsy, unspecified, not intractable, without status epilepticus; O99.344 Other mental disorders complicating childbirth; F41.9 Anxiety disorder, unspecified; O26.893 Other specified pregnancy related conditions, third trimester; Z67.11 Type A blood, Rh negative; Z87.891 Personal history of nicotine dependence; Z88.1 Allergy status to other antibiotic agents; Z79.82 Long term (current) use of aspirin; Z88.2 Allergy status to sulfonamides; Z79.899 Other long term (current) drug therapy
CPT/HCPCS: 36415; 51702; 80053; 82570; 83735; 84156; 84550; 85025; 85460; 85461; 86780; 86850; 86870; 86900; 86901; 87340; 87635; 90384; 90471; 90732; 96372; 99285; G0009; J0360; J0690; J1100; J1200; J1885; J2175; J2250; J2270; J2274; J2405; J2590; J3010; J3475; S0028; U0003

== ENCOUNTER 2020-09-21 12:20 | Day surgery (SDC) | payer BC, OTHER ==
[2020-09-21] MEDS ORDERED: Midazolam HCl 2 mg/2 ml Vial ONE ×2 (13:22→15:08)
[2020-09-21] MEDS ORDERED: Scopolamine 1.5 mg/72 hour Patch ONE (13:22)
[2020-09-21] MEDS ORDERED: Fentanyl 100 MCG/2 ML VIAL ONE ×5 (13:22→17:30)
[2020-09-21] MEDS ORDERED: Famotidine/PF 20 mg/2ml Vial ONE (13:22)
[2020-09-21] MEDS ORDERED: Lidocaine 1% w/Epinephrine 1:100K 20 ML VIAL ONE (15:12)
[2020-09-21] MEDS ORDERED: Iothalamate Meglumine 60% 50 ML VIAL FS ONE (15:12)
[2020-09-21] MEDS ORDERED: Bupivacaine 0.25% HCL 30 ML VIAL ONE (15:12)
[2020-09-21] MEDS ORDERED: PROPOFOL 200 MG/20 ML VIAL ONE (15:41)
[2020-09-21] MEDS ORDERED: Lidocaine 1% PF 5 ML VIAL ONE (15:41)
[2020-09-21] MEDS ORDERED: Ketorolac Tromethamine 30 MG/ML VIAL ONE (15:41)
[2020-09-21] MEDS ORDERED: Dexamethasone 20 MG/5 ML VIAL ONE (15:41)
[2020-09-21] MEDS ORDERED: Rocuronium Bromide 10 MG/ML (10ML VIAL) ONE (15:41)
[2020-09-21] MEDS ORDERED: Ondansetron PF 4 MG/2 ML Vial ONE (15:41)
[2020-09-21] MEDS ORDERED: Glycopyrrolate 0.2 MG/ML 5 ML SYRINGE ONE (15:41)
[2020-09-21] MEDS ORDERED: HYDROmorphone 2 MG/ML VIAL ONE (17:53)
[2020-09-21] MEDS ORDERED: HYDROcodone/Acetaminophen 5/325 mg Tablet ONE (19:46)
== END 2020-09-21 20:40 | disposition home or self-care (01) ==
LOC: SDC 12:20
PROVIDERS: ATTEND Specialist
PROC: BF121ZZ Fluoroscopy of Gallbladder using Low Osmolar Contrast (ICD-10-PCS; principal; 2020-09-21)
PROC: 0FT44ZZ Resection of Gallbladder, Percutaneous Endoscopic Approach (ICD-10-PCS; principal; 2020-09-21)
DX: K80.10 Calculus of gallbladder with chronic cholecystitis without obstruction (principal); F17.210 Nicotine dependence, cigarettes, uncomplicated; Z88.1 Allergy status to other antibiotic agents; Z88.2 Allergy status to sulfonamides
CPT/HCPCS: 47532; 88304; J0690; J1100; J1170; J1885; J2250; J2405; J2704; J3010; Q9961; S0020; S0028

== ENCOUNTER 2020-10-15 09:01 | Outpatient (CLI) | payer OTHER ==
[2020-10-15] MEDS ORDERED: Iopamidol 370 76% 50 ML VIAL FS ONE (14:45)
[2020-10-15] MEDS ORDERED: Iopamidol 370 76% 100 ML VIAL ONE (14:46)
== END 2020-10-15 09:02 | disposition home or self-care (01) ==
LOC: CT 09:01
PROVIDERS: ATTEND Family Medicine
DX: R10.0 Acute abdomen (principal); K59.00 Constipation, unspecified; Z90.49 Acquired absence of other specified parts of digestive tract; N28.9 Disorder of kidney and ureter, unspecified; R10.31 Right lower quadrant pain
CPT/HCPCS: 74177; Q9967

== ENCOUNTER 2022-07-24 21:51 | Emergency (ER) | payer OTHER, SELFPAY ==
[2022-07-24 22:48] LABS: #Eosinphils 0.2 thou/uL (0.0-0.7); #Lymphocytes 1.1 thou/uL (1.20-3.40); #Monocytes 1.2 thou/uL (0.11-0.59); #Neutrophils 15.6 thou/uL (1.40-6.50); %Basophils 0.2 % (0.0-1.0); %Eosinophils 1.3 % (0.0-10.0); %Lymphocytes 6.2 % (21.0-51.0); %Monocytes 6.8 % (0.0-10.0); %Neutrophils 85.5 % (42.0-75.0); Hemoglobin 12.5 g/dL (12.0-16.0); Mean Corpuscular HGB CONC 33.2 g/dL (32.0-36.0); Mean Corpuscular Hemoglobin 32.2 pg (27.0-31.0); Mean Platelet Volume 7.2 fL (7.4-10.4); Platelet Count 242 10x3/uL (130-400); RBC Distribution Width 11.8 % (11.5-14.5); Red Blood Cell (RBC) Count 3.89 mill/uL (4.20-5.40); White Blood Cell (WBC) Count 18.3 10x3/uL (4.8-10.8)
[2022-07-24 23:08] LABS: ALT (SGPT) 114 U/L (8-55); AST (SGOT) 82 U/L (5-34); Alkaline Phosphatase 125 U/L (40-110); Anion Gap 12 mmol/L (10-20); BUN (Urea Nitrogen) 11 mg/dL (7.0-18.7); Bilirubin, Total 0.5 mg/dL (0.2-1.2); Calc. Creatinine Clearance 0 mL/min (70-130); Calcium 9.5 mg/dL (7.8-10.44); Carbon Dioxide 24 mmol/L (22-29); Chloride 107 mmol/L (98-107); Estimated GFR 79; Globulin 3.1 g/dL (2.4-3.5); Glucose 110 mg/dL (70-105); Potassium 3.8 mmol/L (3.5-5.1); Protein, Total 7.1 g/dL (6.0-8.3); Sodium 139 mmol/L (136-145)
[2022-07-24] MEDS ORDERED: Cefepime 2 GM VIAL ONE (23:49)
[2022-07-24] MEDS ORDERED: Bicillin LA 1.2 MILLION UNITS/2 ML SYRINGE ONE (23:49)
[2022-07-24] MEDS ORDERED: Vancomycin 1 GM/200 ML (FROZEN) BAG ONE (23:49)
[2022-07-25] MEDS ORDERED: Benzonatate 100 MG CAP ONE (00:05)
== END 2022-07-25 02:14 | disposition home or self-care (01) ==
LOC: ERS 21:51
DX: J15.4 Pneumonia due to other streptococci (principal); D72.829 Elevated white blood cell count, unspecified; F17.210 Nicotine dependence, cigarettes, uncomplicated
CPT/HCPCS: 71046; 80053; 83605; 84484; 85025; 85379; 87040; 87430; 93005; 96361; 96365; 96366; 96367; 96372; J0561; J0692; J3370-JW

== ENCOUNTER 2022-08-13 07:04 | Emergency (ER) | payer OTHER | END 2022-08-13 08:05 | LOC: ERS 07:04 | DX: Z02.89 Encounter for other administrative examinations (principal) | CPT/HCPCS: 99283 ==

== ENCOUNTER 2022-10-08 18:16 | Emergency (ER) | payer OTHER ==
[2022-10-08 18:48] LABS: Bacteria/HPF None Seen HPF (None Seen); Bilirubin Negative (Negative); Blood, Urine Negative (Negative); Clarity Clear (Clear); Glucose, Urine (Dipstick) Normal (Negative); Ketone, Urine Negative (Negative); Leukocyte 250 Leu/uL (Negative); Nitrite Negative (Negative); Protein, Urine (Dipstick) Negative (Neg-Trace); RBC/HPF 0-3 HPF (0-3); Squamous Epithelial 0-3 HPF (0-3); Urobilinogen Normal mg/dL (Less than 2); WBC/HPF 21-50 HPF (0-3); pH, Urine 6.5 (5.0-9.0)
[2022-10-08 18:52] LABS: Pregnancy Test - Urine (BHCG) Negative (Negative); Pregu Control Background? CLEAR/WHITE (CLR/WHITE); Pregu Control Bar Appear? YES (CONTROL BAR)
[2022-10-08 19:07] LABS: #Basophils 0.1 thou/uL (0.0-0.2); #Eosinphils 0.1 thou/uL (0.0-0.7); #Lymphocytes 2.6 thou/uL (1.20-3.40); #Monocytes 0.5 thou/uL (0.11-0.59); #Neutrophils 5.2 thou/uL (1.40-6.50); %Basophils 0.8 % (0.0-1.0); %Eosinophils 1.3 % (0.0-10.0); %Lymphocytes 31.2 % (21.0-51.0); %Monocytes 5.5 % (0.0-10.0); %Neutrophils 61.2 % (42.0-75.0); Hemoglobin 13.4 g/dL (12.0-16.0); Mean Corpuscular HGB CONC 33.8 g/dL (32.0-36.0); Mean Corpuscular Hemoglobin 32.7 pg (27.0-31.0); Mean Corpuscular Volume 96.9 fl (78.0-98.0); Mean Platelet Volume 7.5 fL (7.4-10.4); Platelet Count 325 10x3/uL (130-400); RBC Distribution Width 11.6 % (11.5-14.5); Red Blood Cell (RBC) Count 4.08 mill/uL (4.20-5.40); White Blood Cell (WBC) Count 8.5 10x3/uL (4.8-10.8)
[2022-10-08 19:29] LABS: ALT (SGPT) 13 U/L (8-55); AST (SGOT) 19 U/L (5-34); Albumin 4.4 g/dL (3.5-5.0); Alkaline Phosphatase 63 U/L (40-110); Anion Gap 12 mmol/L (10-20); BUN (Urea Nitrogen) 21 mg/dL (7.0-18.7); Bilirubin, Total 0.2 mg/dL (0.2-1.2); Calc. Creatinine Clearance 0 mL/min (70-130); Calcium 9.6 mg/dL (7.8-10.44); Carbon Dioxide 25 mmol/L (22-29); Chloride 107 mmol/L (98-107); Estimated GFR 87; Glucose 69 mg/dL (70-105); Potassium 4.2 mmol/L (3.5-5.1); Protein, Total 7.4 g/dL (6.0-8.3); Sodium 140 mmol/L (136-145)
[2022-10-08] MEDS ORDERED: Fluorescein Opthalmic Strip ONE (21:17)
[2022-10-08] MEDS ORDERED: Proparacaine 0.5% Opth 15 ML BOT ONE (21:17)
[2022-10-08] MEDS ORDERED: Ipratropium/Albuterol 3 ML NEB ONE (21:35)
== END 2022-10-08 22:30 | disposition home or self-care (01) ==
LOC: ERS 18:16
DX: S05.02XA Injury of conjunctiva and corneal abrasion without foreign body, left eye, initial encounter (principal); N39.0 Urinary tract infection, site not specified; J20.9 Acute bronchitis, unspecified; F17.210 Nicotine dependence, cigarettes, uncomplicated
CPT/HCPCS: 36415; 71045; 80053; 81003; 81015; 81025; 85025; J7620